=== PATIENT | female | born 1995 | race Caucasian/White ===

== ENCOUNTER 2018-05-15 09:00 | Inpatient (IN) ==
[2018-05-15] MEDS ORDERED: CARBOPROST 250 MCG/ML INJECTION IM PRN (09:21)
[2018-05-15] MEDS ORDERED: ZOLPIDEM 5 MG TABLET PO PRN (09:21)
[2018-05-15] MEDS ORDERED: SALINE FLUSH 10ml SYRINGE IV PRN ×2 (09:21)
[2018-05-15] MEDS ORDERED: LIDOCAINE 1% (10mg/ml) 2mL INJ PF SDV ID PRN (09:21)
[2018-05-15] MEDS ORDERED: CALCIUM CARBONATE Chewable 500mg TABLET PO PRN (09:21)
[2018-05-15] MEDS ORDERED: ACETAMINOPHEN 500 MG TABLET PO PRN (09:21)
[2018-05-15] MEDS ORDERED: METHYLERGONOVINE 0.2 MG/ML INJECTION IM PRN (09:21)
[2018-05-15] MEDS ORDERED: MAG-AL + SIM ORAL LIQUID 30ml PO PRN (09:21)
[2018-05-15 09:25] VITALS: BMI 33.6
[2018-05-15] MEDS ORDERED: AMPICILLIN 1 GM in NS 100 ML IV SCH ×2 (10:15→14:30)
[2018-05-15] MEDS ORDERED: AMPICILLIN 2 GM in NS 100 ML IV ONE (10:30)
[2018-05-15] MEDS ORDERED: ROPIVACAINE 0.2% 2MG/ML INJ 40 MG, SUFentanil 50 MCG in NS 100 ML INFIL ONE (11:22)
[2018-05-15] MEDS ORDERED: OXYTOCIN DRIP 30 UNIT/500 ML ML IV PRN (12:11)
[2018-05-15] MEDS ORDERED: D5LR 1,000 ML IV PRN (12:11)
[2018-05-15] MEDS: LR 1,000 ML IV PRN ×2 (12:17→23:13)
--- NOTE | 2018-05-15 19:36 | Anesthesia Preoperative Report ---
Anesthesia Epidural/Spinal Rec - Date and Time Date: 05/15/18 Procedure: Labor Epidural Plan: Epidural - Vital Signs Vital Signs: Temperature 98.2 F 05/15/18 09:37 Pulse Rate 93 05/15/18 09:37 Respiratory Rate 16 05/15/18 09:37 Blood Pressure 133/66 05/15/18 09:37 /Para: P:0 - Medictaions & Allergies Inpatient Medications: Current Medications Acetaminophen (Tylenol) 500 - 1,000 mg PO Q4H PRN PRN Reason: Pain Al Hydroxide/Mg Hydroxide (Maalox Plus) 30 ml PO Q3H PRN PRN Reason: Indigestion Calcium Carbonate (Tums) 500 - 1,000 mg PO Q2H PRN PRN Reason: Indigestion Carboprost Tromethamine (Hemabate) 250 mcg IM O PRN PRN Reason: .Downtime Lactated Ringer's (Lactated Ringers) 1,000 mls @ 999 mls/hr IV .Q1H1M PRN Last Admin: 05/15/18 12:17 Dose: 999 mls/hr Dextrose/Lactated Ringer's (Dextrose 5%-Lactated Ringers) 1,000 mls @ 125 mls/ hr IV .Q8H PRN PRN Reason: Labor Oxytocin (Pitocin Drip) 30 unit in 500 mls @ 2 mls/hr IV .Q24H PRN; Protocol PRN Reason: Induction/Augmentation Last Admin: 05/15/18 12:17 Dose: 2 mls/hr Lidocaine HCl (Xylocaine-Mpf 1% Vial) 0.2 mg ID O PRN PRN Reason: IV Start Methylergonovine Maleate (Methergine) 0.2 mg IM O PRN Misoprostol (Cytotec) 800 mcg MN ONCE PRN Sodium Chloride (Iv Flush) 10 - 80 ml IV PRN PRN PRN Reason: Flushing Sodium Chloride (Iv Flush) 10 - 80 ml IV PRN PRN PRN Reason: Flushing Zolpidem Tartrate (Ambien) 5 mg PO O PRN PRN Reason: Insomnia Allergies/Adverse Reactions: Allergies Allergy/AdvReac Type Severity Reaction Status Date / Time hydrocodone Allergy Verified 05/11/18 22:08 - Home Medications Home Medications: Home Medications Medication Instructions Recorded Confirmed Type Acetaminophen [Tylenol] 325 mg PO PRN PRN 05/09/18 05/15/18 History Ascorbic Acid [Vitamin C] 500 mg PO DAILY 05/09/18 05/15/18 History Ferrous Sulfate [Iron] 325 mg PO DAILY 05/09/18 05/15/18 History Ondansetron HCl [Zofran] 4 mg PO PRN PRN 05/09/18 05/15/18 History Vit Calc,Iron,Folic 1 each PO DAILY 05/09/18 05/15/18 History [ Vitamins] Ranitidine [Zantac] 1 tab PO DAILY 05/12/18 05/15/18 History - Medical History Gastrointestional: Reports: Gastroesophageal Reflux Disease Other History: Reports: Now - Surgical History HEENT Surgeries: Reports: Tonsillectomy Reproductive Surgery/Treatment: DENIES: Section Anesthesia Reactions: None Hx Family Anesthesia Reaction: No History of Motion Sickness: No - Social History Smoking Status: Never smoker Second Hand Exposure: No Substance Use Type: does not use - Pertinent Findings Lab Data: CBC and BMP 05/15/18 09:40 - Physical Exam Respiratory Exam: lungs clear, bilateral breath sounds equal Cardiovascular Exam: regular rate and rhythm - Airway Assessment Mallampati Score: II TMD: 3 Fingerbreadths Neck Extension: good Overall Assessment: may be difficult intubation - ASA ASA Score: 2 - Discussion Discussion: Discussed risks/options/alternatives of anesthesia and questions answered. Patient consents. Nursing pain assessment noted. Anesthesia Discussion: spouse Attestation Statement: Prior to the delivery of any anesthetic medication, I examined the patient, developed the plan, obtained the patient's consent and discussed the risk and benefits of the procedure with the patient/guardian.
[2018-05-16] MEDS: LR 1,000 ML IV PRN (03:25)
[2018-05-16] MEDS ORDERED: CEFAZOLIN 2 G in NS 100 ML IV SCH (05:30)
[2018-05-16] MEDS ORDERED: FAMOTIDINE PB 20 MG/50 ML BAG IV ONE (06:23)
[2018-05-16] MEDS ORDERED: CITRIC ACID/SODIUM CITRATE 30ml PO ONE (06:23)
[2018-05-16] MEDS ORDERED: TRANEXAMIC ACID 1,000 MG in NS 100 ML IV ONE (06:23)
--- NOTE | 2018-05-16 06:24 | Labor and Delivery Note ---
- Labor and Delivery Labor and Delivery: IUPM shows good contraction, but no cervical change for several hours. FHTs Cat 1. I have recommended for failure to progress. We have discussed the potential risks vs the options of continuing induction. Pt and FOB have asked appropriate questions and would like to move to . OR crew notified.
[2018-05-16] MEDS ORDERED: OXYTOCIN BOLUS BAG 30 UNIT/500 ML ML IV SCH (07:00)
[2018-05-16] MEDS ORDERED: NALOXONE 2 MG/2 ML INJECTION PFS IVP PRN ×2 (07:16→08:40)
[2018-05-16] MEDS ORDERED: ONDANSETRON 4 MG/2 ML INJECTION ONE (07:19)
[2018-05-16] MEDS ORDERED: FentaNYL 100 MCG/2 ML INJECTION ONE (07:22)
[2018-05-16] MEDS ORDERED: AZITHROMYCIN IV 250 MG in NS 100 ML IV SCH (07:30)
[2018-05-16] MEDS ORDERED: MORPHINE SULFATE PF 5mg/10ml INJ (Duramorph) ONE (07:38)
[2018-05-16] MEDS ORDERED: Oxycodone/Acetaminophen 5/325 1 TAB PO PRN (08:40)
[2018-05-16] MEDS ORDERED: SIMETHICONE 80 MG CHEWABLE TABLET PO PRN (08:40)
[2018-05-16] MEDS ORDERED: DiphenhydrAMINE 25 MG CAPSULE PO PRN (08:40)
[2018-05-16] MEDS ORDERED: HYDROCORTISONE 2.5% CREAM 30gm RECTALLY PRN (08:40)
[2018-05-16] MEDS: D5LR 1,000 ML IV SCH ×2 (09:05→21:25)
[2018-05-16] MEDS: DOCUSATE CALCIUM 240 MG CAPSULE PO SCH (11:17)
[2018-05-16] MEDS: IBUPROFEN 800 MG TABLET PO PRN ×2 (11:18→19:37)
--- NOTE | 2018-05-16 12:41 | Operative Note ---
DATE OF SURGERY 05/16/2018 PREOPERATIVE DIAGNOSES 1. 23-year-old 2, para 0 at 37 weeks 2 days gestational age. 2. IUGR. 3. Oligohydramnios. 4. Arrest of dilation and descent. POSTOPERATIVE DIAGNOSES 1. 23-year-old 2, para 0 at 37 weeks 2 days gestational age. 2. IUGR. 3. Oligohydramnios. 4. Arrest of dilation and descent. PROCEDURE Primary low transverse section. SURGEON Khloe yS MD CONE WINDER Alyce Barrett MD ANESTHESIA Epidural by Luigi Davis CRNA COMPLICATIONS None EBL 650 mL FINDINGS Viable male infant, cephalic LOT position, clear scant fluids, Apgars 6/9, weight 2662 grams, name "Cristino". Normal-appearing uterus, tubes and ovaries. INDICATIONS Jewels came to our office yesterday for a scheduled biophysical profile due to poor growth. She scored a 6/8 for oligohydramnios. She was sent over to Maternal/Child for an induction. My partner, Dr. Barrett, placed a Chaudhry bulb for cervical ripening. We also started her on Pitocin. When the Chaudhry bulb was expelled, her membranes were ruptured artificially returning clear fluids. She received an epidural. An IUPC was placed. She never progressed past 4 cm and -2 station despite adequate contractions, so she was consented for a C- section. DESCRIPTION OF PROCEDURE The patient was brought back to the operating room where her epidural was brought up to adequate surgical levels. She already had a Chaudhry catheter in place. She was prepared and draped in the normal sterile fashion after her IUPC was removed. A Pfannenstiel skin incision was made and carried down to the fascia. The fascia was incised in the midline and extended laterally with the Miller scissors. The fascia was elevated and the underlying rectus muscles were dissected off. The peritoneum was entered with a combination of sharp and blunt dissection. This was extended superiorly and inferiorly with good visualization of the bladder. The bladder blade was inserted. A bladder flap was created sharply and the bladder blade reinserted. The lower uterine segment was incised in a transverse fashion layer by layer with a scalpel and bluntly extended. The infant's head was lifted out of the pelvis and delivered atraumatically. The nose and mouth were suctioned. The cord was clamped and cut. The was handed to Dr. Catalan who was asked to attend due to the oligohydramnios. The placenta delivered spontaneously. The uterus was exteriorized and cleared of all clots and debris. The uterine incision was closed with running locked 0 Monocryl. Hemostasis was obtained on the serosal edges with the cautery. The uterus was returned to the abdomen. The gutters were cleared of all clots and debris. The uterine incision was inspected one final time and still noted to be hemostatic. The peritoneum was closed with running 2-0 Vicryl. Hemostasis was obtained in the rectus muscles with the cautery. The fascia was closed with running 0 Vicryl. Hemostasis was obtained in the subcutaneous tissue with the cautery. The skin was closed with 4-0 Vicryl in a subcuticular manner. Dermabond was placed. Sponge, sharp and instrument counts were correct. The patient tolerated the procedure well and was taken to the recovery room in good condition. HANSA
--- NOTE | 2018-05-16 14:48 | Anesthesia Postoperative Note ---
- Date and Time Date: 05/16/18 Time: 14:47 - Status Patient Participated in Evaluation: Patient Participated in Person Vital Signs: Temperature 98.4 F 05/16/18 12:00 Pulse Rate 89 05/16/18 12:00 Respiratory Rate 18 05/16/18 12:00 Blood Pressure 132/61 05/16/18 12:00 Pulse Oximetry 98 05/16/18 12:00 Respiratory Function: Airway Patent, Regular Respirations Cardiovascular Function: Regular Pulse Mental Status: Alert and Oriented Pain Intensity: 0 Hydration: Taking PO Fluids Nausea/Vomiting: None Complications During Recover: None Apparent Post Anesthesia Care Notes: ambulating without problem. - Follow-Up Instructions Instructions: Per Surgeon
--- NOTE | 2018-05-16 17:03 | OB/GYN Progress Note ---
OB-PP Progress Note - General PPD1 - Subjective Date: 05/16/18 Lochia: Minimal Pain: controlled Voiding: monet still in place - Objective Vital Signs: Last Vital Signs Temp 98.4 F 05/16/18 12:00 Pulse 89 05/16/18 12:00 Resp 18 05/16/18 12:00 BP 132/61 05/16/18 12:00 Pulse Ox 98 05/16/18 12:00 Urine Output: good General: alert and oriented Laboratory: Laboratory Results - last 24 hr 05/16/18 13:03 WBC 16.1 H D RBC 3.29 L Hgb 9.4 L D Hct 28.7 L D MCV 87.2 MCH 28.6 MCHC 32.8 RDW Std Deviation 40.1 Plt Count 179 MPV 10.9 - Assessment Assessment: Primary C/S, Anemia - Plan Plan: routine care, iron
[2018-05-16] MEDS: SIMETHICONE 80 MG CHEWABLE TABLET PO SCH (19:37)
[2018-05-17] MEDS: SIMETHICONE 80 MG CHEWABLE TABLET PO SCH ×4 (00:45→23:17)
[2018-05-17] MEDS: IBUPROFEN 800 MG TABLET PO PRN ×3 (05:30→23:17)
--- NOTE | 2018-05-17 09:11 | OB/GYN Progress Note ---
OB-PP Progress Note - General PPD1 Maternal Group B Strep: Negative Maternal Rh: positive Maternal Rubella Status: Immune - Subjective Date: 05/17/18 Lochia: Minimal Pain: controlled Voiding: voiding - Objective Vital Signs: Last Vital Signs Temp 98.3 F 05/17/18 05:30 Pulse 74 05/17/18 05:30 Resp 16 05/17/18 05:30 BP 131/71 05/17/18 05:30 Pulse Ox 98 05/17/18 05:30 General: alert and oriented Abdomen: fundus firm, non-tender Incision: clean, no erythema, dry Extremities: non-tender Laboratory: Laboratory Results - last 24 hr 05/16/18 13:03 WBC 16.1 H D RBC 3.29 L Hgb 9.4 L D Hct 28.7 L D MCV 87.2 MCH 28.6 MCHC 32.8 RDW Std Deviation 40.1 Plt Count 179 MPV 10.9 - Assessment Assessment: Primary C/S - Plan Plan: routine care
[2018-05-17] MEDS: DOCUSATE CALCIUM 240 MG CAPSULE PO SCH (09:27)
[2018-05-17] MEDS: IRON POLYSACCHARIDE COMPLEX 150 MG CAPSULE PO SCH (09:27)
[2018-05-17 18:19] VITALS: O2SAT 95
[2018-05-17 19:49] VITALS: RESP 16
[2018-05-17 23:16] VITALS: BP 109/65; PULSE 81; TEMP 98
[2018-05-18] MEDS: SIMETHICONE 80 MG CHEWABLE TABLET PO SCH (06:22)
--- NOTE | 2018-05-18 08:06 | OB/GYN Progress Note ---
OB-PP Progress Note - General PPD2 Maternal Group B Strep: Negative Maternal Rh: positive Maternal Rubella Status: Immune - Subjective Date: 05/18/18 Lochia: Minimal Pain: controlled Voiding: voiding - Objective Vital Signs: Last Vital Signs Temp 98.0 F 05/17/18 23:15 Pulse 81 05/17/18 23:15 Resp 16 05/17/18 23:15 BP 109/65 05/17/18 23:15 Pulse Ox 95 05/17/18 15:25 General: alert and oriented Abdomen: fundus firm, non-tender Incision: clean, no erythema, dry Extremities: non-tender - Assessment Assessment: Primary C/S - Plan Plan: routine care, discharge home, continue PNV
[2018-05-18] MEDS: DOCUSATE CALCIUM 240 MG CAPSULE PO SCH (10:01)
[2018-05-18] MEDS: IRON POLYSACCHARIDE COMPLEX 150 MG CAPSULE PO SCH (10:02)
== END 2018-05-18 11:00 | disposition home or self-care (01) | DRG 765 ==
LOC: MC 09:00
PROVIDERS: ADMIT Obstetrics & Gynecology; ATTEND Obstetrics & Gynecology